=== PATIENT | female | born 1995 | race African-American/Black ===

== ENCOUNTER 2018-06-03 00:46 | Emergency (ER) | payer OTHER ==
[2018-06-03] MEDS ORDERED: 0.9 % SODIUM CHLORIDE 1,000 ML IV ONE (01:07)
[2018-06-03 02:42] LABS: eGFR (Non-African) > 60
--- NOTE | 2018-06-03 02:56 | ED Physician Documentation ---
General Adult - HISTORIAN Historian: patient - HPI Stated Complaint: sore throat, abd pain, cough Chief Complaint: General Adult Onset: days ago Timing: still present Severity: moderate Further Comments: yes (Pt is a 22 yo female with cough, sore throat, abd pain, and dizziness) - ROS CONST: weakness EYES/ENT: sore throat CVS/RESP: cough GI/: abdominal pain MS/SKIN/LYMPH: none NEURO/PSYCH: dizziness - PAST HX Past History: other (ortho surgery) Surgeries/Procedures: other (ortho) Allergies/Adverse Reactions: Allergies Allergy/AdvReac Type Severity Reaction Status Date / Time No Known Allergies Allergy Verified 06/03/18 01:24 Home Medications: Ambulatory Orders Medication Instructions Recorded Azithromycin [Zithromax] 280 mg PO DAILY #35 ml 06/03/18 - SOCIAL HX Smoking History: cigarettes - FAMILY HX Family History: No - VITAL SIGNS Vital Signs: Vital Signs Temp Pulse Resp BP Pulse Ox 98.2 F 82 16 114/70 96 06/03/18 00:46 06/03/18 00:46 06/03/18 00:46 06/03/18 00:46 06/03/18 00:46 - REVIEWED ASSESSMENTS Nursing Assessment Reviewed: Yes Vitals Reviewed: Yes Progress - Progress Progress: u/a - s.g. > 1.030; otherwise nml u preg - neg rapid strep - neg CXR nml NS 1 L IVF some improvement after IVF Lipase = 330, slightly elevated (normal < 300), pancreatitis unlikely given pt's other sx, cough, sore throat. Azithromycin 500 mg po x 1 in ER. Rx Rx Azithromycin 200 mg/5ml. Take 7 ml by mouth once daily for 5 days. (For cough and sore throat.) Return to ER if abdominal pain or nausea/vomiting becomes worse or if you have new symptoms or concerns. ED Results Lab/Radiology - Lab Results Lab Results: Lab Results 06/03/18 06/03/18 02:16 02:16 Sodium 137 mmol/L mmol/L (136-145) Potassium 3.8 mmol/L mmol/L (3.5-5.1) Chloride 106 mmol/L mmol/L (98-107) Carbon Dioxide 26 mmol/L mmol/L (22-30) BUN 8 mg/dL mg/dL (7-17) Creatinine 0.70 mg/dL mg/dL (0.52-1.04) Estimated Creat Clear 138 Est GFR ( Amer) > 60 (60 - ) Est GFR (Non-Af Amer) > 60 (60 - ) Glucose 82 mg/dL mg/dL (74-106) Calcium 8.6 mg/dL mg/dL (8.4-10.2) Total Bilirubin 0.2 mg/dL mg/dL (0.2-1.3) AST 10 U/L L U/L (15-46) ALT 22 U/L U/L (13-69) Alkaline Phosphatase 58 U/L U/L (38-126) Total Protein 7.6 g/dL g/dL (6.3-8.2) Albumin 3.8 g/dL g/dL (3.5-5.0) Lipase 330 U/L H U/L (23-300) - Orders Orders: ED Orders Category Date Time Status Place IV Lock 1T Care 06/03/18 01:07 Active CBC REF Routine Lab 06/03/18 02:16 Received CBC/PLATELET/DIFF Routine Lab 06/03/18 Ordered CMP Routine Lab 06/03/18 02:16 Completed LIPASE Stat Lab 06/03/18 02:16 Completed URINALYSIS Routine Lab 06/03/18 Ordered URINE HCG Stat Lab 06/03/18 02:13 Ordered 0.9 % Sodium Chloride [Normal Saline] 1,000 ml Med 06/03/18 01:07 Discontinued IV Q1H General Adult Physical Exam - PHYSICAL EXAM GENERAL APPEARANCE: moderate distress EENT: pharynx normal NECK: normal inspection, supple RESPIRATORY: no resp distress, chest non-tender, wheezes (mild) CVS: reg rate & rhythm, heart sounds normal ABDOMEN: soft, normal bowel sounds, tenderness (mid abd tenderness). No: rebound, guarding BACK: normal inspection, no CVA tenderness SKIN: warm/dry, normal color EXTREMITIES: non-tender, normal range of motion, no evidence of injury, no edema NEURO: oriented X3, motor nml, sensation nml Discharge Clincal Impression: cough, sore throat, abd pain, slightly elevated lipase Prescriptions: Azithromycin [Zithromax] 280 mg PO DAILY #35 ml Referrals: Primary Doctor,No [Primary Care Provider] - Condition: Stable Disposition: HOME, SELF-CARE Decision to Admit: NO Decision Time: 04:50
[2018-06-03] MEDS ORDERED: AZITHROMYCIN 250 MG TABLET PO ONE (04:31)
[2018-06-03 04:57] VITALS: BP 117/62
--- NOTE | 2018-06-03 06:57 | Diagnostic Imaging Report ---
JAMAAL LIU [facility] [address] [facility] [address] [address] Report Submission Date: Jun 03, 2018 3:24:36 AM CDT Patient Study Name: ALIVIA AGUSTIN Date: Jun 03, 2018 3:01:24 AM CDT Modality Type: DX Gender: F Description: CHEST : 89 Institution: [facility] Physician: JAMAAL LIU PA and lateral chest Clinical history: Cough, dizziness and sore throat. Findings: Examination of the chest in PA and lateral views demonstrates lungs to be clear. The cardiovascular and mediastinal silhouettes are within normal limits. Bony thorax is intact. Impression: 1. Negative chest. Electronically signed on Jun 03, 2018 3:24:36 AM CDT by: Dav JAQUEZ
[2018-06-03 10:57] LABS: APPEARANCE,URINE CLOUDY (CLEAR); COLOR,URINE AMBER (YELLOW); OCCULT BLOOD,URINE NEGATIVE (NEGATIVE); URINE HCG NEGATIVE (NEGATIVE)
== END 2018-06-03 04:53 | disposition home or self-care (01) ==
LOC: ED 00:46
DX: R10.9 Unspecified abdominal pain (principal); R05 Cough; R07.0 Pain in throat; R74.8 Abnormal levels of other serum enzymes
CPT/HCPCS: 71046; 80053; 81002; 81025; 83690; 85025; 87070; 87880; J7030; 96365; 99284; S1016

== ENCOUNTER 2018-07-27 12:32 | Emergency (ER) | payer SELFPAY ==
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
[2018-07-27 13:00] VITALS: BP 106/61
[2018-07-27] MEDS ORDERED: DIPH,PERTUSS(ACELL),TET VAC/PF 0.5 ML DISP.SYRIN IM ONE (13:09)
[2018-07-27] MEDS ORDERED: NEOMYCIN/BACITRACIN/POLYMYXINB 1 EACH OINT.PACK TP ONE (13:15)
[2018-08-02 14:11] LABS: HIV-1 RNA log NOT DETECTED log
== END 2018-07-27 13:30 | disposition home or self-care (01) ==
LOC: ED 12:32
DX: S51.852A Open bite of left forearm, initial encounter (principal); W50.3XXA Accidental bite by another person, initial encounter; Y93.F9 Activity, other caregiving; Y92.199 Unspecified place in other specified residential institution as the place of occurrence of the external cause; Y99.0 Civilian activity done for income or pay; Z77.21 Contact with and (suspected) exposure to potentially hazardous body fluids; Z20.828 Contact with and (suspected) exposure to other viral communicable diseases
CPT/HCPCS: 36415; 86703; 86706; 86803; 87536; 90471; 90715; 99282; 99283